=== PATIENT | male | born 1995 | race Two or more races ===

== ENCOUNTER 2019-06-08 17:04 | Emergency (ER) | payer OTHER ==
[~2019-06-08] VITALS: Ht 167.6 cm; Wt 79.4 kg
--- NOTE | 2019-06-08 19:35 | NUR ---
ED Nurse Note: Recieved report from KELLE Dale to resume care, pt has been seen and waiting for dispo, nurse did not chart earlier, pt here for wrist pain, had x-rays already, pain at 3/10, resting quietly denies any other complaints or discomforts.
--- NOTE | 2019-06-08 19:49 | Emergency Room Report ---
History of Present Illness General Chief Complaint: Upper Extremity Injury Source: Patient Present Illness HPI 24-year-old male presents to the emergency department complaining of 8 out of 10 severity pain, swelling and tenderness that is localized to the lateral aspect of the right wrist x2 weeks. Patient reports acute onset status post mechanical fall when he landed on that wrist in a bent position 2 weeks ago. Patient states that him and his friend both felt that his hand looked visibly deformed/dislocated so they pushed on the bones/applied pressure and believe that they have reduced his hand dislocation. Patient states that his symptoms improved however he still has some tenderness and swelling to the right wrist area that has not resolved. Patient denies additional trauma or fall. Patient states he was never actually seen by a licensed medical provider. He reports he did recently buy a splint from [employer] that he will at times where but is not consistent with its use. Denies numbness tingling or loss of sensation or gross motor movements of the extremities, incontinence of bowel or bladder. Denies CP, Palpitations, LOC, AMS, dizziness, Changes in Vision, weakness or a sudden severe headache. He denies taking any tjuy-yoi-[id number] medications for symptoms. He reports initially having bruising to the right hand and wrist which has resolved. Pt. is right hand dominant. He reports pain at work when He attempts to lift things with his right hand. Allergies: Coded Allergies: No Known Allergies (Unverified , 06/08/19) Patient History Past Medical History: see triage record Past Surgical History: none Pertinent Family History: none Reviewed Nursing Documentation: PMH: Agreed; PSxH: Agreed Nursing Documentation-PM Past Medical History: No Stated History Review of Systems All Other Systems: negative except mentioned in HPI Physical Exam Vital Signs Date Time Temp Pulse Resp B/P (MAP) Pulse Ox O2 Delivery O2 Flow Rate FiO2 06/08/19 17:18 97.9 52 16 129/74 (92) 97 Room Air Sp02 EP Interpretation: reviewed, normal General Appearance: no apparent distress, alert, GCS 15, non-toxic Head: normocephalic, atraumatic Eyes: bilateral eye normal inspection, bilateral eye PERRL ENT: hearing grossly normal, normal voice Neck: full range of motion Respiratory: chest non-tender, lungs clear, normal breath sounds, speaking full sentences Cardiovascular #1: regular rate, rhythm, normal capillary refill Musculoskeletal: normal range of motion - with pain on right hand adduction and abduction mostly. , gait/station normal, tender - Lateral aspect of the right hand and wrist. ST noted. FROM. there is residual ligt bruising noted to the distal aspect of the 4th and 5th metacarpals with no TTP. Neurologic: alert, motor strength/tone normal, oriented x3, sensory intact, responsive, speech normal Psychiatric: judgement/insight normal Skin: Ecchymosis/Bruising - residual ligt bruising noted to the distal aspect of the 4th and 5th metacarpals with no TTP. Medical Decision Making PA Attestation Dr. Fuller Is my supervising Physician whom patient management has been discussed with. Diagnostic Impression: Primary Impression: Right wrist sprain Qualified Codes: S63.501A - Unspecified sprain of right wrist, initial encounter Additional Impression: Contusion of hand, right Qualified Codes: S60.221A - Contusion of right hand, initial encounter ER Course 24-year-old male presents to the emergency department complaining of 8 out of 10 severity pain, swelling and tenderness that is localized to the lateral aspect of the right wrist x2 weeks. Patient reports acute onset status post mechanical fall when he landed on that wrist in a bent position 2 weeks ago. Patient states that him and his friend both felt that his hand looked visibly deformed/dislocated so they pushed on the bones/applied pressure and believe that they have reduced his hand dislocation. Patient states that his symptoms improved however he still has some tenderness and swelling to the right wrist area that has not resolved. Patient denies additional trauma or fall. Patient states he was never actually seen by a licensed medical provider. He reports he did recently buy a splint from [employer] that he will at times where but is not consistent with its use. Denies numbness tingling or loss of sensation or gross motor movements of the extremities, incontinence of bowel or bladder. Denies CP, Palpitations, LOC, AMS, dizziness, Changes in Vision, weakness or a sudden severe headache. He denies taking any [id number]-zmh-binqofn medications for symptoms. He reports initially having bruising to the right hand and wrist which has resolved. Pt. is right hand dominant. He reports pain at work when He attempts to lift things with his right hand. Ddx considered but are not limited to Fracture, dislocation, contusion, Sprain/ Strain/Spasm, Scaphoid Fx. occult fx. just to name a few. Vital signs: are WNL, pt. is afebrile H&PE are most consistent with musculoskeletal injury will perform imaging to r/ o fractures/dislocations. ORDERS: - X-ray Right Wrist 3 views - negative for fx, Dislocation, or significant soft tissue injury, per preliminary read in ED, and signed by STEPHANIE Vilchis , my supervising physician has reviewed, and agrees with my interpretation. ED INTERVENTIONS: - Right wrist Splint applied by health physics technician. Pt. remains neurovascularly intact. -I do not identify an emergent condition at this time. With current presentation , pt. is stable for close outpatient follow up and conservative treatment. D/ w pt. to return promptly to ED with worsening or new symptoms.- Pt. verbalizes' understanding and agreement with proposed treatment plan. * PT. is provided with ORTHOPEDIC URGENT CARE INFO for FOLLOW UP within 3 days. DISCHARGE: At this time pt. is stable for d/c to home. Will provide printed patient care instructions, and any necessary prescriptions. Care plan and follow up instructions have been discussed with the patient prior to discharge. Other X-Ray Diagnostic Results Other X-Ray Diagnostic Results : X-Ray ordered: Right wrist # of Views/Limited Vs Complete: 3 View Indication: Pain EP Interpretation: Yes STEPHANIE Xray: Interpretation reviewed, by supervising MD, and agrees with findings. Interpretation: no dislocation, no soft tissue swelling, no fractures Impression: No acute disease Electronically Signed by: Petty Vilchis PA-C Last Vital Signs Date Time Temp Pulse Resp B/P (MAP) Pulse Ox O2 Delivery O2 Flow Rate FiO2 06/08/19 17:18 97.9 52 16 129/74 (92) 97 Room Air Status: improved Disposition: HOME, SELF-CARE Condition: Stable Scripts Ibuprofen* (MOTRIN*) 600 Mg Tablet 600 MG ORAL THREE TIMES A DAY, #30 TAB 0 Refills Prov: Petty Vilchis 06/08/19 Departure Forms: Return to Work Return to Work Date: Jun 09, 2019 Work Restrictions: No Heavy Lifting Other Restrictions: wear splint. Limited use of Right hand. May return if Symptoms resolve. Return to Full Activity: Jun 15, 2019 Patient Instructions: Contusion, [id number], Wrist Sprain Additional Instructions: Take medications as directed. Follow up with an SPECIAL EVENTS MANAGER within 3 days, even if your symptoms have resolved. If symptoms persist More advanced imaging or additional imaging may be required at the discretion of your PCP or Ortho Specialist. --Please review ORTHOPEDIC URGENT CARE REFERRAL INFORMATION if you do not already have a primary care provider who can give you an Orthopedic Referral. Return sooner to ED if new symptoms occur, or current symptoms become worse. - Please note that this Emergency Department Report was dictated using [employer]/owner technology software, occasionally this can lead to erroneous entry secondary to interpretation by the dictation equipment. Petty Vilchis Jun 08, 2019 19:49
--- NOTE | 2019-06-08 20:10 | Diagnostic Imaging Report ---
Indication: Right wrist pain COMPARISON: None Findings: 3 views of the right wrist were obtained. No acute fractures, malalignment, erosions or periostitis are identified. Soft tissues are unremarkable. Impression: No acute findings.
[2019-06-08] MEDS ORDERED: IBUPROFEN600 MG ORAL (21:04)
[2019-06-08 21:15] VITALS: BP 122/71
--- NOTE | 2019-06-08 21:15 | NUR ---
ER DISCHARGE NOTE: Patient is cleared to be discharged per ERMD, pt is aox4, on room air, with stable vital signs. pt was given dc and prescription instructions, pt was able to verbalize understanding, pt id band removed without complications. pt is able to ambulate with steady gait. pt took all belongings.
[2019-06-08 21:20] VITALS: BP 122/71
== END 2019-06-08 21:20 | disposition home or self-care (01) ==
LOC: EMR 21:20
DX: S63.501A Unspecified sprain of right wrist, initial encounter (principal); S60.221A Contusion of right hand, initial encounter; W01.0XXA Fall on same level from slipping, tripping and stumbling without subsequent striking against object, initial encounter; Y93.89 Activity, other specified; Y92.9 Unspecified place or not applicable
CPT/HCPCS: 29125; 99283